=== PATIENT | female | born 1960 | race Caucasian/White ===

== ENCOUNTER 2024-06-16 04:21 | Day surgery (SDC) | payer OTHER ==
[2024-06-14 13:47] VITALS: BMI 30.4
[2024-06-16 10:43] VITALS: PULSE 89; RESP 18
[2024-06-16] MEDS ORDERED: SUCCINYLCHOLINE CHLORIDE 200 MG/10 ML SYRINGE ONE (12:20)
[2024-06-16] MEDS ORDERED: MIDAZOLAM HCL 2 MG/2 ML SINGLE DOSE VIAL ONE (12:21)
[2024-06-16] MEDS ORDERED: ONDANSETRON 4 MG/2 ML VIAL ONE (12:21)
[2024-06-16] MEDS ORDERED: LIDOCAINE HCL/PF 2% SDV 5ML VIAL ONE (12:21)
[2024-06-16] MEDS ORDERED: DEXAMETHASONE SOD PHOSPHATE 4 MG/1 ML VIAL ONE (12:21)
[2024-06-16] MEDS ORDERED: KETOROLAC TROMETHAMINE 30 MG/1 ML VIAL ONE (12:21)
[2024-06-16] MEDS ORDERED: PROPOFOL 20 ML ONE (12:31)
[2024-06-16] MEDS ORDERED: ONDANSETRON 4 MG/2 ML VIAL IVPUSH PRN (12:49)
[2024-06-16] MEDS ORDERED: oxyCODONE HCL 5 MG TABLET PO PRN (12:49)
[2024-06-16] MEDS ORDERED: GLYCOPYRROLATE 0.2 MG/1 ML VIAL ONE (12:53)
[2024-06-16] MEDS ORDERED: LACTATED RINGERS SOLUTION 1,000 ML IV SCH (13:00)
[2024-06-16] MEDS ORDERED: IBUPROFEN 400 MG TABLET (FP) PO PRN (13:25)
[2024-06-16] MEDS ORDERED: ACETAMINOPHEN 325 MG TABLET (FP) PO PRN (13:25)
[2024-06-16 15:15] VITALS: BP 148/77; TEMP 97.7
== END 2024-06-16 14:44 | disposition home or self-care (01) ==
LOC: JASU-SURG 04:21
PROVIDERS: ATTEND Specialist
PROC: 0UDB8ZZ Extraction of Endometrium, Via Natural or Artificial Opening Endoscopic (ICD-10-PCS; principal; 2024-06-16 12:00)
DX: N95.0 Postmenopausal bleeding (principal); N84.0 Polyp of corpus uteri
CPT/HCPCS: 88305-TC; 94760

== ENCOUNTER 2024-10-20 04:19 | Inpatient (IN) | payer OTHER ==
[2024-10-19 10:25] VITALS: BMI 29.7
[2024-10-20] MEDS ORDERED: PROPOFOL 20 ML ONE ×4 (07:37→11:03)
[2024-10-20] MEDS ORDERED: LIDOCAINE HCL/PF 2% SDV 5ML VIAL ONE (07:39)
[2024-10-20] MEDS ORDERED: ROCURONIUM BROMIDE 50 MG/5 ML SYRINGE ONE (07:39)
[2024-10-20] MEDS ORDERED: methylPREDNISolone NA SUCC 125 MG/2 ML VIAL ONE (08:08)
[2024-10-20] MEDS ORDERED: MIDAZOLAM HCL 2 MG/2 ML SINGLE DOSE VIAL ONE (08:16)
[2024-10-20] MEDS ORDERED: BUPIVACAINE HCL/PF 0.5% (5MG/ML) 10 ML VIAL ONE (08:22)
[2024-10-20] MEDS ORDERED: ALBUTEROL SO4 HFA INHALER IH ONE (08:41)
[2024-10-20] MEDS: ceFAZolin SODIUM 1 GM VIAL IVPB ONE (08:46)
[2024-10-20] MEDS ORDERED: ONDANSETRON 4 MG/2 ML VIAL IVPUSH PRN ×3 (09:54→12:09)
[2024-10-20] MEDS ORDERED: TRANEXAMIC ACID 1000 MG/10 ML VIAL ONE (10:51)
[2024-10-20] MEDS ORDERED: ACETAMINOPHEN INJECTION 100 ML ONE (10:53)
[2024-10-20] MEDS ORDERED: IBUPROFEN 800 MG/8 ML IJ IVPB ONE (11:53)
[2024-10-20] MEDS ORDERED: BISACODYL 5 MG TABLET.DR (FP) PO PRN (12:09)
[2024-10-20] MEDS ORDERED: SIMETHICONE 80 MG TAB.CHEW (FP) PO PRN (12:09)
[2024-10-20] MEDS ORDERED: DOCUSATE SODIUM 100 MG CAPSULE (FP) PO PRN (12:09)
[2024-10-20] MEDS ORDERED: ALBUTEROL SO4 0.042% IH SOL 1.25 MG/3 ML VIAL.NEB NEB PRN (12:16)
[2024-10-20] MEDS: IBUPROFEN 800 MG/8 ML IJ IVPB ONE (12:20)
[2024-10-20] MEDS: BUPIVACAINE 0.5% /EPI 1:200,000 10 ML VIAL IJ ONE (13:08)
[2024-10-20] MEDS: SODIUM CHLORIDE 1,000 ML IV SCH (13:21)
[2024-10-20] MEDS: ACETAMINOPHEN 1000 MG/100 ML BAG IVPB SCH (16:36)
[2024-10-20] MEDS: CEFAZOLIN 1 GM/D5W 1 GM/50 ML BAG IVPB SCH (16:42)
[2024-10-20] MEDS: traMADol HCL 50 MG TABLET PO PRN (20:16)
[2024-10-20] MEDS: IBUPROFEN 800 MG/8 ML IJ IVPB SCH (22:13)
[2024-10-20] MEDS: EZETIMIBE 10 MG TABLET (FP) PO SCH (22:13)
[2024-10-21] MEDS: CEFAZOLIN 1 GM/D5W 1 GM/50 ML BAG IVPB SCH (01:12)
[2024-10-21 07:32] LABS: HEMATOCRIT 47.6 % (32.4-45.2); HEMOGLOBIN 15.8 GM/dL (10.7-15.3); MCH 29.8 pg (25.7-33.7); MCHC 33.2 g/dl (32.0-36.0); MEAN CELL VOLUME 89.8 fl (80-96); MEAN PLT VOLUME 7.6 fl (7.5-11.1); PLATELET COUNT 266 10^3/uL (134-434); RDW 13.9 % (11.6-15.6); WHITE BLOOD COUNT 12.5 K/mm3 (4.0-10.0)
[2024-10-21] MEDS: ENOXAPARIN NA (PORCINE) 40 MG/0.4 ML DISP.SYRIN SQ SCH (10:24)
[2024-10-21] MEDS: ASPIRIN COATED 81 MG TABLET.EC PO SCH (10:25)
[2024-10-21] MEDS: FLUTICASONE/UMECLIDIN/VILANTER(100-62.5-25 TRELEGY ELLIPTA) INAHLER IH SCH (11:40)
[2024-10-21] MEDS: amLODIPine BESYLATE 5 MG TABLET (FP) PO SCH (15:23)
[2024-10-21] MEDS: ACETAMINOPHEN 500 MG TABLET (FP) PO ONE (15:38)
[2024-10-21 17:13] LABS: POTASSIUM 4.3 mmol/L (3.5-5.1)
[2024-10-21 17:14] LABS: CALCIUM 8.6 mg/dL (8.5-10.1)
[2024-10-21 17:15] LABS: ALBUMIN 3.4 g/dl (3.4-5.0); BLOOD UREA NITROGEN 11.6 mg/dL (7-18)
[2024-10-21 17:18] LABS: CREATININE 0.7 mg/dL (0.55-1.3)
[2024-10-21 17:20] LABS: TOT PROT 6.8 g/dl (6.4-8.2)
[2024-10-21 18:54] VITALS: RESP 17
[2024-10-22 06:09] VITALS: BP 156/82; PULSE 95; TEMP 98.6
[2024-10-22 07:16] LABS: BASO % 0.5 % (0-2.0); EOS % 0.2 % (0-4.5); HEMATOCRIT 46.9 % (32.4-45.2); HEMOGLOBIN 15.5 GM/dL (10.7-15.3); LYMPH % 12.6 % (8-40); MCH 29.9 pg (25.7-33.7); MEAN CELL VOLUME 90.6 fl (80-96); MEAN PLT VOLUME 7.7 fl (7.5-11.1); MONO % 9.1 % (3.8-10.2); NEUT % 77.6 % (42.8-82.8); PLATELET COUNT 257 10^3/uL (134-434); RBC 5.18 M/mm3 (3.60-5.2); RDW 14.1 % (11.6-15.6); WHITE BLOOD COUNT 10.5 K/mm3 (4.0-10.0)
[2024-10-22 07:32] LABS: POTASSIUM 4.2 mmol/L (3.5-5.1)
[2024-10-22 07:35] LABS: ALBUMIN 3.3 g/dl (3.4-5.0); CALCIUM 8.2 mg/dL (8.5-10.1)
[2024-10-22 07:36] LABS: BLOOD UREA NITROGEN 13.8 mg/dL (7-18); MAGNESIUM 2.2 mg/dL (1.8-2.4)
[2024-10-22 07:39] LABS: CREATININE 0.6 mg/dL (0.55-1.3); PHOSPHOROUS 2.5 mg/dL (2.5-4.9)
[2024-10-22 07:40] LABS: BILIRUBIN,TOTAL 0.9 mg/dL (0.2-1); TOT PROT 6.7 g/dl (6.4-8.2)
[2024-10-22] MEDS: ACETAMINOPHEN 500 MG TABLET (FP) PO ONE (10:24)
[2024-10-22] MEDS: PATIENT'S OWN MEDICATION (NON-FORMULARY) (Gabapentin [Gralise] 600 MG Tab.Er.24h) PO SCH (17:35)
[2024-10-22] MEDS ORDERED: amLODIPine BESYLATE 5 MG TABLET (FP) PO SCH (22:00)
== END 2024-10-22 15:04 | disposition home or self-care (01) | DRG 513 ==
LOC: JASU-SURG 04:19 → J2C 12:09 → J4S 15:18
PROVIDERS: ADMIT Internal Medicine; ATTEND Internal Medicine
PROC: 0DNW0ZZ Release Peritoneum, Open Approach (ICD-10-PCS; 2024-10-20)
PROC: 0UT70ZZ Resection of Bilateral Fallopian Tubes, Open Approach (ICD-10-PCS; 2024-10-20)
PROC: 0UT20ZZ Resection of Bilateral Ovaries, Open Approach (ICD-10-PCS; 2024-10-20)
PROC: 0UT90ZZ Resection of Uterus, Open Approach (ICD-10-PCS; principal; 2024-10-20 08:00)
DX: N93.9 Abnormal uterine and vaginal bleeding, unspecified (principal); J44.1 Chronic obstructive pulmonary disease with (acute) exacerbation; K66.0 Peritoneal adhesions (postprocedural) (postinfection); I10 Essential (primary) hypertension; E78.5 Hyperlipidemia, unspecified; R09.02 Hypoxemia; R10.2 Pelvic and perineal pain
CPT/HCPCS: 36415; 71045-TC-FY; 80053; 83735; 84100; 85025; 85027; 86850; 86870; 86880; 86900; 86901; 86902; 88305-TC; 88307-TC; 88341-TC; 88342-TC; 93005; 93010; 94760; 94761; 97116-GP; 97161-GP; J0131